=== PATIENT | male | born 1955 | race Caucasian/White ===

== ENCOUNTER 2016-07-18 11:22 | Observation (INO) | payer OTHER ==
--- NOTE | ~2016-07-18 | EKG ---
PATIENT: ABEBA GONCALVES UNIT #: [id number] Ventricular Rate: 69 BPM Atrial Rate: 69 BPM P-R Interval: 198 ms QRS Duration: 100 ms Q-T Interval: 392 ms QTC Calculation(Bezet): 420 ms P [place]: 71 degrees Calculated R [place]: 5 degrees Calculated T [place]: 43 degrees Diagnosis Line: Normal sinus rhythm Diagnosis Line: Normal ECG Diagnosis Line: When compared with ECG of 05-JUN-2011 07:11, Diagnosis Line: No significant change was found Diagnosis Line: Confirmed by LAURA HILLMAN MD ([id number]) on Diagnosis Line: 07/19/2016 4:27:39 PM INTERPRETING MD: KADY MAJOR
--- NOTE | ~2016-07-18 | OR ---
Unit #: [id number] #: [id number] Patient: ABEBA GONCALVES [id number] [address] [address] [id number] MR#: [id number] NAME: ABEBA GONCALVES. ROOM: 460 Date of Procedure: 07/18/2016 Admission Date: 07/18/2016 Surgeon: Herb Lerma M.D. : 1955 Attending Physician: Hans Fregoso III, M.D. OPERATIVE REPORT PREOPERATIVE DIAGNOSIS Perirectal abscess. POSTOPERATIVE DIAGNOSIS Perirectal abscess. PROCEDURES PERFORMED 1. Incision and drainage of perirectal abscess. 2. Examination under anesthesia. ANESTHESIA General anesthesia. ESTIMATED BLOOD LOSS Minimal. IV FLUIDS 500 crystalloid. COMPLICATIONS None. INDICATIONS FOR PROCEDURE The patient is a 61-year-old gentleman, who presents with a perirectal abscess. DESCRIPTION OF PROCEDURE The patient was taken to the operating theater and placed in a supine position. General anesthesia was induced. His perineal region was prepped and draped. He was then placed in candy-cane stirrups. General examination revealed a posterior abscess cavity. An 11-blade was then used to open this area. I then used a my finger to break up the loculations. This was then irrigated after cultures were obtained. I then packed with Betadine. The cavity measured approximately 3 x 3 cm in diameter. Dictated by... Herb Lerma M.D. JNO/dnonl Unit #: [id number] #: [id number] Patient: ABEBA GONCALVES TD: 07/18/2016 23:46 JOB #: [id number] OPERATIVE REPORT Page 1 of 1 X Herb Lerma MD X PROCEDURE OPERATIVE NOTE
[~2016-07-18 11:22] MED LIST: CIPRO PO; COATED ASPIRIN325 M1 PO; EFFIENT10 MG PO; FLAGYL PO; HYDROCHLOROTH12.5 MG PO; HYDROCODON-ACE1 EAC9 PO; LOPRESSOR PO; NITROGLYCERIN0.4 MG SL; PRAVASTATIN SOD40 MG PO; ZESTRIL10 MG PO
[2016-07-18 14:38] LABS: BASOPHIL# 0.1 X10e3 (0-0.3); BASOPHIL% 0.8 % (0-2.5); EOSINOPHIL# 0.1 X10e3 (0-0.7); EOSINOPHIL% 0.8 % (0.0-7.0); HEMATOCRIT 40.6 % (38.0-50.0); HEMOGLOBIN 13.7 gm/dL (13.0-16.0); LYMPHOCYTE# 1.5 X10e3 (1.0-3.5); MEAN CELL VOLUME 88.5 FL (83-96); MEAN CORPUSCULAR HEMOGLOBIN 29.8 PG (28-34); MEAN CORPUSCULAR HGB CONC 33.7 g/dL (30-36); MEAN PLATELET VOLUME 6.8 FL (6.5-11.5); MONOCYTE# 0.9 X10e3 (0-1.0); NEUTROPHIL# 7.3 X10e3 (1.5-7.1); NEUTROPHIL% 74.4 % (40-75); PLATELET COUNT 310 X10e3 (140-420); RED BLOOD COUNT 4.59 X10e (3.90-5.60); RED CELL DISTRIBUTION WIDTH 16.1 % (11.0-15.5); WHITE BLOOD COUNT 9.8 X10e3 (4.0-10.5)
[2016-07-18 14:40] LABS: DIFF IND NO
[2016-07-18 15:09] LABS: CALCIUM SERUM 9.6 mg/dL (8.4-10.2); GLOM FILT RATE Estimated 81.5 mL/min (>60); POTASSIUM 3.9 mmol/L (3.5-5.1)
[2016-07-18] MEDS ORDERED: LO-DOSE ASPIRIN81 M1 PO (15:15)
[2016-07-18] MEDS ORDERED: TOPROL XL 50 MG50 MG PO (15:16)
[2016-07-18] MEDS ORDERED: LISINOPRIL30 MG PO (15:17)
[2016-07-19 03:53] LABS: BUN/CREATININE RATIO 13.07; CREATININE SERUM 1.3 mg/dL (0.6-1.4); GLOM FILT RATE Estimated 59.3 mL/min (>60); POTASSIUM 4.1 mmol/L (3.5-5.1)
[2016-07-19] MEDS ORDERED: KEFLEX500 M1 PO (11:22)
[2016-07-19] MEDS ORDERED: HYDROCODON-ACE1 EAC9 PO (11:22)
== END 2016-07-19 11:40 | disposition home or self-care (01) | DRG 395 ==
LOC: CED 11:22 → CSUR 15:34 → CPACUOF 16:43 → CSUR 17:00 → CPACUOF 17:00 → C4B 17:00 → C4C 20:30 → CPACUOF 20:30 → C4C 07-19 08:57 → C4B 07-19 08:57
PROVIDERS: Emergency Medicine; Surgery
DX: K61.2 Anorectal abscess (principal); F17.200 Nicotine dependence, unspecified, uncomplicated; I25.10 Atherosclerotic heart disease of native coronary artery without angina pectoris; Z95.5 Presence of coronary angioplasty implant and graft; Z79.82 Long term (current) use of aspirin
CPT/HCPCS: 36415; 80048; 85025; 86850; 86900; 86901; 87070; 87075; 87077; 87186; 87205; 93005; 96361; 96374; 96375; 96376; 99291; G0378; J1885; J2270; J2405; J2543; J3010